=== PATIENT | male | born 1975 | race Caucasian/White ===

== ENCOUNTER 2017-02-26 15:54 | Emergency (ER) | payer SELFPAY ==
[2017-02-26 16:13] VITALS: BP 130/83; PULSE 85; TEMP 97.9; BMI 29.7
--- NOTE | 2017-02-26 16:21 | PDOC ---
History of Present Illness - General Chief Complaint: Injury Stated Complaint: INJURY Time Seen by Provider: 02/26/17 16:19 History Source: Patient Exam Limitations: No Limitations - History of Present Illness Initial Comments: CHIEF COMPLAINT: 41 y/o afebrile male with no significant PMH c/o right foot pain s/p trauma this morning. HISTORY OF PRESENT ILLNESS: The patient fell this morning and slammed his right foot against the base of the bed. He states he can walk but states it hurts. He did not take anything for the pain. He denies head trauma, numbness/ tingling in affected extremity, swelling or redness to affected extremity. Vital signs on arrival are within normal limits. REVIEW OF SYSTEMS: GENERAL/CONSTITUTIONAL: No fever/chills. No weakness. No weight change. MUSCULOSKELETAL: +right foot pain. No neck or back pain. SKIN: No rash or easy bruising. NEUROLOGIC: No headache, vertigo, loss of consciousness, or loss of sensation. PHYSICAL EXAM: VITAL_SIGNS: within normal limits GENERAL_APPEARANCE: alert, cooperative, no obvious discomfort. MENTAL_STATUS: speech clear, oriented X 3, responds appropriately to questions. NEURO: motor intact and sensory intact in injured extremity. EXTREMITIES: Pain reproduced with palpation of right dorsal foot, along 4th and 5th metatarsals. 2+ dorsalis pedis pulse in right foot. Full ROM of right ankle and right toes. No erythema, edema, crepitus or obvious deformities to affected extremity. SKIN: warm, dry, good color. Past History - Past Medical History Allergies/Adverse Reactions: Allergies Allergy/AdvReac Type Severity Reaction Status Date / Time No Known Allergies Allergy Unverified 02/26/17 15:55 Home Medications: Ambulatory Orders Amlodipine Besylate [Norvasc -] 2.5 mg PO DAILY #30 tablet MDD 1 11/05/16 Emtricitab/Rilpivirine/Tenofov [Complera Tablet -] 1 each PO DAILY #30 tablet Loratadine [Claritin -] 10 mg PO DAILY #30 tablet 11/05/16 Multivit-Min/Iron Fum/Folic AC [Pyjuh-Jhjpdwk-Ggpeqmrk Tablet] 1 each PO DAILY # 30 tablet 11/05/16 Anemia: No Asthma: No Cancer: No Cardiac Disorders: No CVA: No COPD: No CHF: No Dementia: No Diabetes: No GI Disorders: No Disorders: No HTN: No Hypercholesterolemia: No Liver Disease: No Seizures: No Thyroid Disease: No Other medical history: denies - Surgical History Abdominal Surgery: No Appendectomy: No Cardiac Surgery: No Cholecystectomy: No Lung Surgery: No Neurologic Surgery: No Orthopedic Surgery: No - Immunization History Immunization Up to Date: Yes - Psycho/Social/Smoking Cessation Hx Suicidal Ideation: No Smoking History: Never smoked Have you smoked in the past 12 months: No Number of Cigarettes Smoked Daily: 0 Cigars Per Day: 0 Hx Alcohol Use: No Drug/Substance Use Hx: No Substance Use Type: None Hx Substance Use Treatment: No *Physical Exam - Vital Signs Last Vital Signs Temp Pulse Resp BP Pulse Ox 97.9 F 85 18 130/83 99 02/26/17 15:56 02/26/17 15:56 02/26/17 15:56 02/26/17 15:56 02/26/17 15:56 Medical Decision Making - Medical Decision Making A/P: 41 y/o male with right foot pain s/p trauma this morning. Plan is as follows: 1. xray right foot/ankle 2. PO motrin Xray right foot/ankle IMPRESSION: No acute fracture Gave the patient the results. Suggested RICE instructions and MOtrin for pain if needed. Instructed him to return to the ER with any worsening or concerning symptoms. The patient verbalizes understanding of all instructions, has no further questions and is awaiting discharge. *DC/Admit/Observation/Transfer Diagnosis at time of Disposition: Foot pain, right - Discharge Dispostion Disposition: HOME Condition at time of disposition: Good - Referrals Referrals: Dereje Oglesby NP [Primary Care Provider] - Loco Hernadez MD [Staff Physician] - 1 week (If no improvement in symptoms) - Patient Instructions Printed Discharge Instructions: DI for Foot Pain, How To Perform RICE (Rest, Ice, Compress, Elevate) Additional Instructions: Discharge Instructions: -The xray of your foot was normal -Please follow RICE instructions and take MOtrin every 6 hours with food for pain -Call Dr. Hernadez in 1 week if no improvement in symptoms. Instrucciones de elie: -La radiografa de tu pie era normal -Por favor siga las instrucciones de ARROZ y tome MOtrin cada 6 horas con comida para el dolor -Call Dr. Jane en 1 semana si no hay mejora en los sntomas. Print Language: MALTESE
[2017-02-26] MEDS ORDERED: IBUPROFEN 600 MG TABLET (FP) PO ONE ×2 (16:26→16:29)
== END 2017-02-26 17:17 | disposition home or self-care (01) ==
LOC: JERFT 15:54
DX: M79.671 Pain in right foot (principal); W22.03XA Walked into furniture, initial encounter; Y93.89 Activity, other specified; Y92.009 Unspecified place in unspecified non-institutional (private) residence as the place of occurrence of the external cause
CPT/HCPCS: 73610-TC-RT; 73630-TC-RT; 99281-25